=== PATIENT | male | born 1985 | race Caucasian/White ===

== ENCOUNTER → 2021-05-03 10:19 | Outpatient (BNVA) | payer OTHER, SELFPAY | PROVIDERS: PCP Nurse Practitioner Family; Visit Provider Psychiatry & Neurology Neurology ==

== ENCOUNTER 2021-05-20 18:41 | Outpatient (REF) | payer OTHER, SELFPAY ==
--- NOTE | ~2021-05-20 | MR_ITS ---
EXAMINATION: MR LUMBAR SPINE WITHOUT CONTRAST CLINICAL INFORMATION: Spondylosis without myelopathy or radiculopathy. COMPARISON: CT abdomen and pelvis 01/26/2019. TECHNIQUE: MRI of the lumbar spine was obtained using routine sequences without contrast. FINDINGS: Alignment is normal. Vertebral heights are preserved. No acute bone marrow signal changes. There is slight loss of intervertebral disc height and T2 signal intensity at multiple levels related to disc degeneration. The tip of the conus medullaris is located at T12-L1. No mass effect on the conus. Visualized distal cord signal intensity is normal. At L1-L2 the annular contour is normal. No canal or neuroforaminal compromise. At L2-L3 there is a slightly bulging disc. No canal stenosis. No mass effect on the traversing or foraminal nerve roots. At L3-L4 there is a diffusely bulging disc. Mild canal stenosis. No mass effect on the traversing or foraminal nerve roots. At L4-L5 there is a shallow left foraminal to far lateral protrusion superimposed upon a bulging disc. No canal stenosis. Asymmetric narrowing of the left subarticular zone causing abutment and possible compression of left traversing L5 nerve roots. Mild mass effect on both L4 foraminal nerve roots. At L5-S1 there is a diffusely bulging disc. Bilateral facet degenerative change. No canal stenosis. Mild mass effect on both L5 foraminal nerve roots. Limited visualization of the retroperitoneal anatomy reveals no abnormal finding. Psoas and paraspinal muscle groups are symmetric. MR/MR lumbar spine wo con IMPRESSION: There is disc degeneration at multiple levels within the lumbar spine. Mild canal stenosis at L3-L4. Otherwise no canal compromise. At L4-L5 there is a small left foraminal to far lateral protrusion superimposed upon a bulging disc. Mild mass effect on both L4 foraminal nerve roots at L4-L5. There is also asymmetric narrowing of the left subarticular zone at this level causing abutment and possible compression of the left traversing L5 nerve roots. Mild mass effect on both L5 foraminal nerve roots related to degenerative changes at L5-S1.
== END 2021-05-20 18:42 | disposition home or self-care (01) ==
LOC: HO.MRI 18:41
PROVIDERS: Visit Provider Psychiatry & Neurology Neurology
DX: M47.816 Spondylosis without myelopathy or radiculopathy, lumbar region (principal); R26.89 Other abnormalities of gait and mobility
CPT/HCPCS: 72148

== ENCOUNTER → 2021-07-12 12:51 | Outpatient (BNVA) | payer OTHER, SELFPAY | PROVIDERS: PCP Nurse Practitioner Family; Visit Provider Nurse Practitioner Family | DX: Z13.89 Encounter for screening for other disorder (principal) ==

== ENCOUNTER 2021-08-01 08:29 | Emergency (ER) | payer OTHER, SELFPAY ==
--- NOTE | ~2021-08-01 | XR_ITS ---
EXAMINATION: XR CHEST CLINICAL INFORMATION: Chest pain COMPARISON: None TECHNIQUE: 2 views of the chest were obtained. FINDINGS: Slight elevation the right hemidiaphragm, nonspecific. No pneumothorax. Trachea is midline. Cardiomediastinal silhouette is not enlarged. No large pleural effusion. Osseous structures are intact. Soft tissues are unremarkable. XR/XR chest 2V IMPRESSION: No acute cardiopulmonary process.
[2021-08-01 08:40] VITALS: BP 132/88; PULSE 80; RESP 18; TEMP 37; O2SAT 99; BMI 29.8
--- NOTE | 2021-08-01 08:51 | ECG_ITS ---
Test Reason : chest pain Blood Pressure : / mmHG Vent. Rate : 094 BPM Atrial Rate : 094 BPM P-R Int : 130 ms QRS Dur : 082 ms QT Int : 338 ms P-R-T Axes : 063 053 048 degrees QTc Int : 422 ms Normal sinus rhythm Normal ECG No previous ECGs available Referred By: Louise Díaz Electronically Signed By:SPENSER SHEA
[2021-08-01 09:56] LABS: MANUAL DIFF FLAG NO
[2021-08-01 10:08] LABS: Basophils Percent Auto 0.3 % (0-2); Eosinophils Absolute Auto 0.1 X10*3/uL (0.0-0.4); Eosinophils Percent Auto 0.6 % (0-4); Hematocrit 40.9 % (42.0-52.0); Imm Gran Abs Auto 0.05 X10*3/uL (0.00-0.03); Imm Gran Pct Auto 0.5 % (0.0-0.4); Lymphocytes Percent Auto 20.7 % (20-40); Mean Corpuscular HGB Conc 34.2 g/dl (31.0-36.0); Mean Corpuscular Volume 81.8 fL (80.0-98.0); Mean Platelet Volume 9.5 fL (9.4-12.4); Monocytes Absolute Auto 0.7 X10*3/uL (0.1-1.2); Monocytes Percent Auto 7.6 % (2-11); Neutrophils Absolute Auto 6.6 x10*3/uL (2.0-8.3); Neutrophils Percent Auto 70.3 % (45-73); Platelet Count 271 X10*3/uL (160-400); Red Cell Distribution Width 12.6 % (11.0-16.0); White Blood Count 9.5 X10*3/uL (4.8-10.8)
[2021-08-01 10:17] LABS: Alanine Aminotransferase 38 U/L (0-40); Albumin Level 4.8 g/dL (3.5-5.0); Alkaline Phosphatase 76 U/L (39-117); Anion Gap 13 (12-20); Aspartate Amino Transferase 26 U/L (5-37); Bilirubin Total 0.4 mg/dL (0.0-1.0); Blood Urea Nitrogen 17 mg/dL (9-16); Calcium 10.1 mg/dL (8.4-10.2); Carbon Dioxide 26 mmol/L (22-29); Chloride 105 mmol/L (96-108); Creatinine Clr Calc Pharmacy 115.1; Estimated Glomerular Filt Rate > 60; Glucose Random 97 mg/dL (60-115); Potassium 4.5 mmol/L (3.3-5.1); Sodium 139 mmol/L (135-145); Total Protein 7.6 g/dL (6.5-8.0)
[2021-08-01 10:20] LABS: Troponin-I High Sensitivity < 3.5 ng/L (<3.5-35.0)
[2021-08-01 10:26] LABS: COVID-19 Test Negative (Negative); IDNOW Serial# 16C4AD1C; Influenza A Negative (Negative); Influenza B2 Negative (Negative)
--- NOTE | 2021-08-01 12:36 | ED.GENADULT ---
HPI - General Adult General Chief complaint: General Medical Stated complaint: chest pain headache Time Seen by Provider: 08/01/21 08:51 Source: patient Mode of arrival: ambulatory Limitations: no limitations History of Present Illness HPI narrative: Patient is a 35 year old male presenting to the emergency department today feeling generally unwell. Patient states that for the last few weeks, he has felt generally unwell. Patient denies any dizziness, lightheadedness, abdominal pain, nausea, vomiting, fever, blurry vision, double vision, loss of vision, chest pain, difficulty breathing, shortness of breath, back pain, night sweats, pain with urination, increased urinary frequency, increased urinary urgency, blood in his urine or stool, syncope or a near syncopal episode, recent trauma or falls, bowel incontinence, bladder incontinence, bowel retention, bladder retention, or any other complaints at this time. Onset (ago): week(s) Relieving factors: none Exacerbating factors: none Associated symptoms: cough and fever/chills Treatments prior to arrival: none Related Data Home Medications Medication Instructions Recorded Confirmed acetaminophen 500 mg tablet 500 mg PO Q6H PRN 05/02/21 07/12/21 (Tylenol Extra Strength) escitalopram oxalate 5 mg tablet 5 mg PO DAILY 05/03/21 07/12/21 nortriptyline 25 mg capsule 25 mg PO BEDTIME 05/03/21 07/12/21 pregabalin 150 mg capsule 225 mg PO BID cap 05/03/21 07/12/21 Allergies Allergy/AdvReac Type Severity Reaction Status Date / Time No Known Allergies Allergy Verified 05/03/21 10:35 Review of Systems Constitutional: Constitutional: Reports no additional constitutional complaints, Reports chills, Denies fever(s) and Denies night sweats Eyes: Eyes: Reports no additional eye complaints, Denies blurry vision, Denies change in vision, Denies diplopia, Denies eye discharge, Denies loss of vision and Denies eye pain ENT: Denies dizziness and Reports sore throat Cardiovascular: Cardiovascular: Reports no additional cardiovascular complaints, Denies chest pain, Denies lightheadedness, Denies Loss of Consciousness and Denies dyspnea Respiratory: Respiratory: Reports no additional respiratory complaints, Reports cough and Denies dyspnea Gastrointestinal: Gastrointestinal: Reports no additional gastrointestinal complaints, Denies abdominal pain, Denies melena, Denies hematochezia, Denies change in bowel habits and Denies change in stool character Genitourinary: Genitourinary: Reports no additional male genitourinary complaints, Denies hematuria, Denies oliguria, Denies difficulty urinating, Denies dysuria, Denies urinary frequency, Denies urinary hesitancy, Denies urinary incontinence and Denies urinary urgency Musculoskeletal: Musculoskeletal: Reports no additional musculoskeletal complaints, Denies numbness and Denies tingling Neurologic: Denies dizziness, Denies loss of vision, Denies numbness and Denies tingling Psychiatric: Psychiatric: Reports no additional psychiatric complaints Endocrine: Endocrine: Reports no additional endocrine complaints Hematologic/Lymphatic: Hematologic/Lymphatic: Reports no additional hematologic/lymphatic complaints Allergic/Immunologic: Allergic/Immunologic: Reports no additional allergic/immunologic complaints [facility] Past Medical History Attestation statement: The following information was validated with the patient. Source: old records reviewed Medical History Cervical spondylosis Headache Lumbar spondylosis Surgical History H/O knee surgery S/P cervical disc replacement Family History Family History Father Diabetes mellitus Mother Diabetes mellitus Social History Social History Alcohol intake: current Alcohol intake frequency: holidays/special occasions only Patient Tobacco Use Status: Never used Tobacco Advance Directives: Yes Advance Directives Information Provided: Yes Advance Directives on File: No Physical Exam ED Vital Signs: Vital Signs - 24 hr 08/01/21 08:40 Temperature 98.6 F Pulse Rate 80 Respiratory Rate 18 Blood Pressure 132/88 Pulse Oximetry 99 BMI result Body Mass Index 29.8 Const General: cooperative, no acute distress, alert and awake Nutritional Appearance: well nourished Orientation/consciousness: patient oriented x3 Limitations: no limitations HENMT Head: Yes normal to inspection and Yes atraumatic Ears: hearing grossly normal bilaterally and external ears normal General nose exam: Normal external nose present, no nasal discharge noted and no epistaxis Face and sinus: Yes normal facial exam, No abrasion and No laceration Mouth: Normal oral and palatal mucosa present, no drooling and no muffled voice Eyes General: appearance normal, both eyes and all related structures Periorbital: periorbital findings normal Eyelids: Yes eyelids normal Conjunctivae: conjunctivae normal Pupils: Equal, round and reactive pupils present EOM: EOMs intact bilaterally Neck Neck: Yes normal visual inspection, Yes full ROM and Yes no lymphadenopathy Chest Chest palpation & inspection: normal inspection of the chest Resp Effort & Inspection: normal respiratory effort and able to speak in complete sentences Auscultation: clear to auscultation bilaterally Cardio Rate: regular rate Rhythm: regular rhythm GI Inspection: Yes normal to inspection Neuro General: patient oriented x3 and moves all extremities Cranial nerves: Yes Equal, round and reactive pupils present Cognition (Neuro): normal cognition Motor exam (neuro): 5/5 motor strength present throughout Sensory Exam: Normal double simultaneous stimulation for sensation Coordination: [id number] test normal Extrem General: Yes normal to inspection, Yes full ROM and Yes capillary refill normal Psych Appearance: grossly normal Mental Status: mental status grossly normal Affect: normal affect Attitude: cooperative Thought process: Normal thought process present Thought content: Normal thought content present Insight: Good insight present (Psych) Medical Decision Making MDM Narrative Medical decision making narrative: Patient is a 35 year old male presenting to the emergency department today feeling generally unwell. Patient's physical exam was unremarkable. Patient's blood work was unremarkable. Patient's EKG was unremarkable. Patient's chest x-ray showed no acute process. Patient's rapid COVID-19 and Influenza test was negative. I explained my physical exam findings as well as all test results to the patient. I answered all questions asked by the patient. I stressed the importance of the patient taking his medication as prescribed. I stressed the importance of the patient following up with his primary care provider. I stressed the importance of the patient returning to the emergency department immediately if his symptoms were to worsen or if he were to develop any dizziness, shortness of breath, difficulty breathing, chest pain, blurry vision, loss of vision, nausea, vomiting, abdominal pain, fever, chills, back pain, or any other complaints. Patient erbalized agreement and understanding with this treatment plan and discharge. Differential Diagnosis Differential Diagnosis: viral illness, COVID-19, influenza Medical Records Medical records reviewed: Yes I reviewed the patient's medical records. Lab Data Lab results reviewed: Yes I reviewed the patient's lab results. Result diagrams: 08/01/21 09:49 08/01/21 09:49 Labs: Lab Results 08/01/21 08/01/21 08/01/21 Range/Units 09:49 09:49 09:49 WBC 9.5 (4.8-10.8) X10*3/uL RBC 5.00 (4.60-5.80) X10*6/uL Hgb 14.0 (14.0-18.0) g/dl Hct 40.9 L (42.0-52.0) % MCV 81.8 (80.0-98.0) fL MCH 28.0 (27.0-33.0) pg MCHC 34.2 (31.0-36.0) g/dl RDW 12.6 (11.0-16.0) % Plt Count 271 (160-400) X10*3/uL MPV 9.5 (9.4-12.4) fL Immature Gran % (Auto) 0.5 H (0.0-0.4) % Neut % (Auto) 70.3 (45-73) % Lymph % (Auto) 20.7 (20-40) % [place] % (Auto) 7.6 (2-11) % Eos % (Auto) 0.6 (0-4) % Baso % (Auto) 0.3 (0-2) % Lymph # (Auto) 2.0 (1.2-4.9) X10*3/uL [place] # (Auto) 0.7 (0.1-1.2) X10*3/uL Eos # (Auto) 0.1 (0.0-0.4) X10*3/uL Baso # (Auto) 0.0 (0.0-0.2) X10*3/uL Abs Immat Gran (auto) 0.05 H (0.00-0.03) X10*3/uL Absolute Neuts (auto) 6.6 (2.0-8.3) x10*3/uL Absolute Nucleated RBC 0.000 (0.0-0.012) X10*3/uL Nucleated RBC % (auto) 0.0 (0.0-0.2) /100WBC Sodium 139 (135-145) mmol/L Potassium 4.5 (3.3-5.1) mmol/L Chloride 105 (96-108) mmol/L Carbon Dioxide 26 (22-29) mmol/L Anion Gap 13 (12-20) BUN 17 H (9-16) mg/dL Creatinine 0.91 (0.5-1.4) mg/dL Estim Creat Clear Calc 115.1 Estimated GFR > 60 Random Glucose 97 (60-115) mg/dL Calcium 10.1 (8.4-10.2) mg/dL Magnesium 2.0 (1.6-2.6) mg/dL Total Bilirubin 0.4 (0.0-1.0) mg/dL AST 26 (5-37) U/L ALT 38 (0-40) U/L Alkaline Phosphatase 76 (39-117) U/L Troponin I High Sens < 3.5 (<3.5-35.0) ng/L Total Protein 7.6 (6.5-8.0) g/dL Albumin 4.8 (3.5-5.0) g/dL COVID-19 (CELESTE) (Negative) COVID-19 Clin Com Influenza Type A (BERNIE) (Negative) Influenza Type B (BERNIE) (Negative) Influenza A & B Note 08/01/21 08/01/21 Range/Units 09:49 09:49 WBC (4.8-10.8) X10*3/uL RBC (4.60-5.80) X10*6/uL Hgb (14.0-18.0) g/dl Hct (42.0-52.0) % MCV (80.0-98.0) fL MCH (27.0-33.0) pg MCHC (31.0-36.0) g/dl RDW (11.0-16.0) % Plt Count (160-400) X10*3/uL MPV (9.4-12.4) fL Immature Gran % (Auto) (0.0-0.4) % Neut % (Auto) (45-73) % Lymph % (Auto) (20-40) % [place] % (Auto) (2-11) % Eos % (Auto) (0-4) % Baso % (Auto) (0-2) % Lymph # (Auto) (1.2-4.9) X10*3/uL [place] # (Auto) (0.1-1.2) X10*3/uL Eos # (Auto) (0.0-0.4) X10*3/uL Baso # (Auto) (0.0-0.2) X10*3/uL Abs Immat Gran (auto) (0.00-0.03) X10*3/uL Absolute Neuts (auto) (2.0-8.3) x10*3/uL Absolute Nucleated RBC (0.0-0.012) X10*3/uL Nucleated RBC % (auto) (0.0-0.2) /100WBC Sodium (135-145) mmol/L Potassium (3.3-5.1) mmol/L Chloride (96-108) mmol/L Carbon Dioxide (22-29) mmol/L Anion Gap (12-20) BUN (9-16) mg/dL Creatinine (0.5-1.4) mg/dL Estim Creat Clear Calc Estimated GFR Random Glucose (60-115) mg/dL Calcium (8.4-10.2) mg/dL Magnesium (1.6-2.6) mg/dL Total Bilirubin (0.0-1.0) mg/dL AST (5-37) U/L ALT (0-40) U/L Alkaline Phosphatase (39-117) U/L Troponin I High Sens (<3.5-35.0) ng/L Total Protein (6.5-8.0) g/dL Albumin (3.5-5.0) g/dL COVID-19 (CELESTE) Negative (Negative) COVID-19 Clin Com See Note Influenza Type A (BERNIE) Negative (Negative) Influenza Type B (BERNIE) Negative (Negative) Influenza A & B Note See Note Imaging Data Chest x-ray: Attestation: I personally reviewed and interpreted this imaging study as follows: My impression: No acute process. Radiologist's impression: EXAMINATION: XR CHEST CLINICAL INFORMATION: Chest pain COMPARISON: None TECHNIQUE: 2 views of the chest were obtained. FINDINGS: Slight elevation the right hemidiaphragm, nonspecific. No pneumothorax. Trachea is midline. Cardiomediastinal silhouette is not enlarged. No large pleural effusion. Osseous structures are intact. Soft tissues are unremarkable. XR/XR chest 2V IMPRESSION: No acute cardiopulmonary process. Dictated By: Dominguez Moreno MD Signed By: Electronically signed by Dominguez Moreno MD 08/01/21 1002 ECG Data Attestation: I personally reviewed and interpreted this ECG as follows: Prior ECG tracings: not available for review Interpretation: Vent. Rate: 094 BPM ? ? Atrial Rate: 094 BPM P-R Int: 130 ms? QRS Dur: 082 ms QT Int: 338 ms ? ? ? P-R-T Axes: 063 053 048 degrees QTc Int: 422 ms ? Normal sinus rhythm Normal ECG No previous ECGs available DD/ 6 Discharge Plan Discharge Clinical Impression: Viral illness Patient Disposition: Home, Self-Care Instructions: Viral Syndrome (ED) Additional Instructions: Follow up with your primary care provider. Return to the emergency department immediately if your symptoms worsen or if you develop any dizziness, shortness of breath, difficulty breathing, chest pain, blurry vision, loss of vision, nausea, vomiting, abdominal pain, fever, chills, back pain, or any other complaints. Prescriptions: No Action acetaminophen [Tylenol Extra Strength] 500 mg tablet 500 mg PO Q6H PRN0RF pregabalin 150 mg capsule 225 mg PO BID 0RF nortriptyline 25 mg capsule 25 mg PO BEDTIME 0RF escitalopram oxalate 5 mg tablet 5 mg PO DAILY 0RF Referrals: Gregor Velazquez MD [Primary Care Provider] - (Follow up with your PCP. ) Interventions: ED Discharge Assessment Last Done: 08/01/21 13:08 Discharge Date/Time: 08/01/21 13:09 Print Language: Kiswahili
== END 2021-08-01 13:09 | disposition home or self-care (01) ==
PROVIDERS: Physician Assistant Medical; Emergency Provider Emergency Medicine; PCP Pediatrics
DX: B34.9 Viral infection, unspecified (principal); Z20.822 Contact with and (suspected) exposure to COVID-19
CPT/HCPCS: 71046; 80053; 83735; 84484; 85025; 87502; 87635; 93005; 99283

== ENCOUNTER → 2021-08-19 08:59 | Outpatient (BNVA) | payer OTHER, SELFPAY | PROVIDERS: PCP Nurse Practitioner Family; Visit Provider Nurse Practitioner Family | DX: M62.830 Muscle spasm of back (principal) ==

== ENCOUNTER 2022-01-28 06:08 | Outpatient (REF) | payer OTHER, SELFPAY ==
--- NOTE | ~2022-01-28 | FL_ITS ---
EXAMINATION: XR FLUOROSCOPY WITH IMAGES CLINICAL INFORMATION: Disc degeneration in the lumbar region. COMPARISON: MRI of the lumbar spine of 05/20/2021. TECHNIQUE: Fluoroscopy performed by Cherelle Sidhu. Fluoroscopy time: 0.5 minutes. Cumulative Dose: 17.1 mGy. DAP: 4.67 Gy-cm2. Images: 2. FINDINGS: Needle and contrast seen in place about the right L5 neuroforamina with extension of contrast into the epidural space. On a 2nd image which does not show right and left positioning a needle is seen at L5 neuroforamina with epidural extension. FL/FL guidance in treatment room IMPRESSION: Intraoperative fluoroscopy for orthopedic procedure for pain management.
== END 2022-01-28 06:09 | disposition home or self-care (01) ==
LOC: CF 06:08
PROVIDERS: Visit Provider Anesthesiology
DX: M51.36 Other intervertebral disc degeneration, lumbar region (principal); M96.1 Postlaminectomy syndrome, not elsewhere classified
CPT/HCPCS: 62323; J1100; J3300

== ENCOUNTER 2022-02-05 10:29 | Outpatient (REF) | payer OTHER, SELFPAY ==
[2022-02-05 13:50] LABS: Baso%MD 0.4 %; Hematocrit 41.2 % (42.0-52.0); Hemoglobin 14.2 g/dl (14.0-18.0); IG%MD 1.3 %; Lymph%MD 19.7 %; Mean Corpuscular HGB Conc 34.5 g/dl (31.0-36.0); Mean Corpuscular Hemoglobin 28.6 pg (27.0-33.0); Mean Corpuscular Volume 83.1 fL (80.0-98.0); Mean Platelet Volume 9.9 fL (9.4-12.4); Mono%MD 9.6 %; Platelet Count 262 X10*3/uL (160-400); Red Blood Count 4.96 X10*6/uL (4.60-5.80); Red Cell Distribution Width 12.6 % (11.0-16.0); White Blood Count 10.4 X10*3/uL (4.8-10.8)
[2022-02-05 14:29] LABS: Erythrocyte Sedimentation Rate 5 MM/HR (0-15)
[2022-02-05 14:44] LABS: Band Neutrophils Percent 1 % (3-5); Basophils Abs Manual 0.1 X10*3/uL (0.0-0.2); Basophils Percent Manual 1 % (0-2); Eosinophils Absolute Manual 0.1 X10*3/uL (0.0-0.4); Eosinophils Percent Manual 1 % (0-4); Lymphocytes Absolute Manual 2.1 X10*3/uL (1.2-4.9); Lymphocytes Percent Manual 20 % (20-40); Monocytes Absolute Manual 0.7 X10*3/uL (0.1-1.2); Monocytes Percent Manual 7 % (2-11); Neutrophils Absolute Manual 7.4 X10*3/uL (2.0-8.3); Neutrophils Percent Manual 70 % (45-73)
[2022-02-05 14:46] LABS: Platelet Estimate NORMAL (NORMAL); Platelet Morphology Comment NORMAL; RBC Morphology NORMAL
[2022-02-07 14:32] LABS: CRP High Sensitivity 3.2 mg/L
== END 2022-02-05 10:30 | disposition home or self-care (01) ==
LOC: HO.10HDL 10:29
PROVIDERS: Visit Provider Anesthesiology
DX: M51.36 Other intervertebral disc degeneration, lumbar region (principal)
CPT/HCPCS: 36415; 85007; 85027; 85652; 86141

== ENCOUNTER 2022-02-14 10:00 | Outpatient (REF) | payer OTHER, SELFPAY ==
[2022-02-14 10:38] LABS: Baso%MD 0.4 %; Eos%MD 0.6 %; Hemoglobin 14.1 g/dl (14.0-18.0); IG%MD 0.4 %; Lymph%MD 20.3 %; Mean Corpuscular HGB Conc 34.4 g/dl (31.0-36.0); Mean Corpuscular Hemoglobin 28.8 pg (27.0-33.0); Mean Corpuscular Volume 83.7 fL (80.0-98.0); Mean Platelet Volume 9.3 fL (9.4-12.4); Mono%MD 9.8 %; Neut%MD 68.5 %; Platelet Count 256 X10*3/uL (160-400); Red Cell Distribution Width 12.7 % (11.0-16.0)
[2022-02-14 11:22] LABS: Band Neutrophils Percent 2 % (3-5); Eosinophils Absolute Manual 0.1 X10*3/uL (0.0-0.4); Eosinophils Percent Manual 1 % (0-4); Lymphocytes Absolute Manual 2.2 X10*3/uL (1.2-4.9); Lymphocytes Percent Manual 27 % (20-40); Monocytes Absolute Manual 1.1 X10*3/uL (0.1-1.2); Monocytes Percent Manual 14 % (2-11); Neutrophils Absolute Manual 4.6 X10*3/uL (2.0-8.3); Neutrophils Percent Manual 56 % (45-73)
[2022-02-14 11:24] LABS: Platelet Estimate NORMAL (NORMAL); Platelet Morphology Comment NORMAL; RBC Morphology NORMAL
[2022-02-14 11:32] LABS: Erythrocyte Sedimentation Rate 5 MM/HR (0-15)
[2022-02-17 22:26] LABS: CRP High Sensitivity 1.8 mg/L
== END 2022-02-14 10:01 | disposition home or self-care (01) ==
LOC: HO.10HDL 10:00
PROVIDERS: Visit Provider Nurse Practitioner Family
DX: M51.36 Other intervertebral disc degeneration, lumbar region (principal)
CPT/HCPCS: 36415; 85007; 85027; 85652; 86141

== ENCOUNTER → 2022-04-17 14:01 | Outpatient (BNVA) | payer OTHER, SELFPAY | PROVIDERS: PCP Nurse Practitioner Family; Visit Provider Nurse Practitioner Family | DX: M51.36 Other intervertebral disc degeneration, lumbar region (principal) ==

== ENCOUNTER 2022-06-27 12:51 | Outpatient (REF) | payer OTHER, SELFPAY ==
--- NOTE | ~2022-06-27 | XR_ITS ---
EXAMINATION: XR CERVICAL SPINE CLINICAL INFORMATION: Cervical radiculopathy. COMPARISON: Portions of the MRI cervical spine dated 08/03/2020. TECHNIQUE: Frontal, odontoid, bilateral oblique, lateral and swimmer's views of the cervical spine are submitted. FINDINGS: The vertebral alignment is normal. No intrinsic bony abnormality. There are intact C4-C5 and C5-C6 disc prostheses. There is mild bilateral neural foraminal narrowing at C5-C6. The remaining disc heights and neural foramina are well maintained. The posterior elements are normal. No fracture or subluxation. The surrounding prevertebral soft tissues are unremarkable. XR/XR cervical spine min 6V IMPRESSION: 1. There are intact C4-C5 and C5-C6 disc prostheses. 2. There is mild bilateral foraminal narrowing at C5-C6.
--- NOTE | ~2022-06-27 | XR_ITS ---
EXAMINATION: XR SHOULDER, RIGHT CLINICAL INFORMATION: Pain. COMPARISON: None available. TECHNIQUE: AP external rotation, Grashey, scapular Y, and axillary views of the right shoulder. FINDINGS: The bones and soft tissues are normal. No fracture. Glenohumeral and acromioclavicular alignment is anatomic with normal joint space. No abnormal soft tissue calcifications. XR/XR shoulder RT min 2V IMPRESSION: Normal right shoulder.
== END 2022-06-27 12:52 | disposition home or self-care (01) ==
LOC: HO.XRAY 12:51
PROVIDERS: PCP Nurse Practitioner Family; Visit Provider Nurse Practitioner Family
DX: M25.511 Pain in right shoulder (principal); M47.22 Other spondylosis with radiculopathy, cervical region; G43.909 Migraine, unspecified, not intractable, without status migrainosus; M96.1 Postlaminectomy syndrome, not elsewhere classified; Z79.899 Other long term (current) drug therapy
CPT/HCPCS: 72052; 73030

== ENCOUNTER → 2022-07-08 15:53 | Outpatient (BNVA) | payer OTHER, SELFPAY | PROVIDERS: PCP Nurse Practitioner Family; Visit Provider Nurse Practitioner Family | DX: Z13.89 Encounter for screening for other disorder (principal) ==

== ENCOUNTER 2022-09-17 06:03 | Outpatient (REF) | payer OTHER, SELFPAY ==
--- NOTE | ~2022-09-17 | FL_ITS ---
EXAMINATION: XR FLUOROSCOPY WITH IMAGES CLINICAL INFORMATION: Postlaminectomy syndrome, not elsewhere classified. Right cervical injection. COMPARISON: None available. TECHNIQUE: Fluoroscopy Supervised By: Dr. Gunter. Fluoroscopy Time: 0.6 minutes. Cumulative Dose: 6.96 mGy. DAP: 0.466 Gycm2. Images: 3. FINDINGS: Images demonstrate needle placement and contrast injection over the right posterior lateral lower cervical vertebral bodies FL/FL guidance in treatment room IMPRESSION: Fluoroscopy guidance for pain management
== END 2022-09-17 06:04 | disposition home or self-care (01) ==
LOC: CF 06:03
PROVIDERS: Visit Provider Internal Medicine
DX: M96.1 Postlaminectomy syndrome, not elsewhere classified (principal); M54.12 Radiculopathy, cervical region
CPT/HCPCS: 62321; J1040

== ENCOUNTER 2022-10-16 09:58 | Outpatient (AMB) | payer OTHER, SELFPAY ==
--- NOTE | 2022-10-16 10:00 | A.OFFVIS_ITS ---
Intake Vital Signs 10/16/22 10:03 Height 5 ft 6 in Weight 187 lb 2 oz BMI 30.2 BP 134/77 Position Sitting Pulse 80 Pulse Source Pulse Oximeter Pulse Oximetry (%) 98 Oxygen Delivery Method Room Air Intake Visit Reasons: s/p Right C5-C6 interlaminar PHU Intake Note: Pain today 10/13 Manager Of Environmental Services Required: No Accompanied by: Self / Same As Patient Allergies No Known Allergies Allergy (Verified 10/16/22 10:03) HPI HPI Comments History of Present Illness Details Patient presents today to assess response to Interlaminar epidural steroid injection, C7/T1, Right parasaggital on 09/17/[address] Gunter. Patient reports 60% ongoing pain relief since procedure with partially improved cervical range of motion, functioning, better sleep and better social in teractions. Patient reports he is continuing with home exercise program for his neck pain but notices neck stiffness with left lateral rotation. He also reports chronic low back pain and is interested to undergo diagnostic bilateral medial branch blocks for potential Sprint PNS trial. We also briefly returned to SCS trial topic. His behavioral evaluation will be expiring next week. Patient is not interested in neuromodulation with SCS trial at this time and will pursue less invasive interventional treatments at this time. Denies fever, malaise, dizziness, shortness of breaths, weakness, abdominal or groin pain, bowel or bladder incontinence or saddle anesthesia. Past Procedures: 09/17/22: Interlaminar C7-T1 parasaggital PHU injection-ongoing 60% pain relief 01/28/22: Left L4-L5 and Right L5-S1 transforaminal PHU-0% pain relief PRIOR: Patient presents today via telehealth encounter to discuss recent cervical spine and right shoulder imaging results. Patient continues to endorse right shoulder pain and right sided neck pain with increased pain, stiffness, limited daily activities, disruppted sleep and difficulty with spending time with his family, especially with his children. Patient reports he cannot shrimp picker his 6 months old baby or play with his toddler. Repors throbbing pain with weakness in his right hand and significant muscle spasms and tenderness between his neck and shoulder area. Denies numbness, tingling, gait imbalance, dizziness, bladder or bowel incontinence or saddle anesthesia. He underwent C4-C5, C5-C6 anterior approach cervical surgery in [address] Alva and has followed up with him about 2 years ago for his lower back pain. Patient requests repeat cervical spine MRI due to worsening of his neck symptoms. Right shoulder xray was normal. Cervical spine xray showed intact C4-C5 and C5-C6 disc prostheses and mild bilateral foraminal narrowing at C5-C6. PRIOR: Patient presents today for follow up for ongoing right shoulder pain and right sided neck pain with limited range of motion. He completed 8 sessions of chiropractic with minimal improvement. Patient also reports tension and migraine headaches with photosensitivity, eye pressure, muscle spasms and stiffness. Denies any recent trauma, injury, or falls. His neck pain has been chronic and worsening with components of cervical post-laminectomy pain syndrome. He c ontinues to take meloxicam, pregabalin, Tylenol, heat therapy, and methocarbamol. Patient has passed behavioral evaluation for potential cervical SCS trial. We will obtain right shoulder and neck plain films and proceed with cervical SCS trial if no acute findings. Denies any recent cough, cold, inf ection, fever or other significant changes in medical history since last office visit. PRIOR: Patient presents today with right sided neck pain with radiation to his right top of the shoulder into his right lower arm and extending into his right lower arm and fingers with numbness and fingers. He underwent C4-C5, C5-C6 anterior approach cervical surgery in [address] Alva. Patient had last follow up with Dr. Alva after neck surgery for back pain and was told no surgical indications for back surgery. Patient states his neck pain started about 2 weeks ago. He has been out of work for holiday times and denies any inciting events, recent trauma, injury or falls. Reports right sided neck tightness. Painful neck turns during driving. Patient had similar neck pain episodes as well spasmodic torticollis in 2019 and 2020 and was seen by his neurologist Dr. Fernandes with cervical MRI follow ups. Last cervical MRI on 08/03/2020 showed stable exam compared to imaging on 11/28/2019. Post-operative findings redemonstrated at the C4-C5 and C5-C6 levels. No significant spinal canal stenosis. Unchanged neural foraminal stenosis which appears moderate to severe on the right and moderate on the left at C3-C4 and is moderate to severe bilaterally at C5-C6. Patient has full range of motion of right shoulder and significant right sided upper and lower trapezius muscle tightness and neck stiffness on the right. Patient denies any fever, headache, chills, visual disturbances, dizziness, gait instability or weakness, bowel or bladder incontinence or saddle anesthesia. Patient reports his back pain symptoms have been minimal at this time. He rates his right sided neck pain at 9/10 which increases with extension, flexion and right lateral movements. PRIOR: Patient presents today to assess response to Left L4-L5 and Right L5-S1 transforaminal PHU 01/28/[address] Freire. Patient had telephone follow up on 01/31/22 s/p left L4-5 and right L5-S1 TFESI for concerns of discitis per Dr. Freire. His initial WBC count was slightly elevated but still within normal limits and ESR was normal on 02/05/22. The repeat CBC with diff and ESR were normal on 02/14/22. Patient was prescribed co urse of Clindamycin for prophylaxis and prevention of discitis. We attempted to preauthorize lumbar spine MRI s/p injection but this was denied. At this time, no further suspension for discitis. Patient reports he had temporary relief of symptoms on the right side but continues to reports radiation of his back pain into his LLE with associated numbness and tingling. He reports alternating symptoms of muscle spasms and heaviness in his lower back after his work hours. He has stopped tizanidine due to ineffectiveness and drowsiness. Patient has been taking Ibuprofen 600-800 mg bid prn for severe pain with partial symptom relief. Patient is interested to trial chiropractic manipulation prior to reconsider further therapeutic injections or SCS trial. He denies any recent trauma, injury or falls. Denies fever, malaise, dizziness, shortness of breaths, weakness, abdominal or groin pain, bowel or bladder incontinence or saddle anesthesia. PRIOR: Patient presents to follow up after recently completing and passing behavioral assessment for potential lumbar SCS. Patient continues to report constant axial mid and lower back pain symptoms and intermittent discogenic symptoms with radiation of lower back pain to lower legs posteriorly up to the ankle levels with associated numbness and tingling. Pain increased with prolonged sitting, standing or walking and position changes. Patient is currently on maximum dose of pregablin 225 mg BID, nortriptyline 25 mg at bedtime, tizanidine 4 mg prn, and celecoxib 200 mg BID prn. Patient reports he has reviewed SCS trial and permanent system brochures and is interested to trial least invasive treatment options first prior to considering SCS trial. 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 Patient continues to report significant muscle tenderness and spasms in his mid and lower back regions, worse in the morning. He denies any recent trauma, injury or falls. Denies abdominal or groin pain, bowel or bladder incontinence or saddle anesthesia. I have reviewed his [facility] records. Patient had multiple injections through [facility], including bilateral L4-L5 and L5-S1 facet injections that provided him 80% pain relief for 4 weeks. Bilateral C6 TFESI injection was helpful. His lumbar spine MRI 05/2021 shows minimal discogenic and arthritic changes and he is not a surgical candidate per Dr. Alva. Patient is interested to undergo lumbar PHU injection to alleviate his back symptoms. PRIOR: Patient is a pleasant 35 year old male presents today with chronic cervical and lumbar pain and post laminectomy syndrome of the cervical region. Patient reports C4-C5, C5-C6 anterior approach cervical surgery in [address] Alva after which he started having lower back pain. Today he reports axial back pain that radiates into his lower legs posteriorly and intermittently with numbness and tingling in his toes. Pain is described as severe shooting, ?electrical pain,? throbbing, stabbing, sharp, pinching, tingling, dull, sore, hurting, ach ing, heavy, tiring, exhausting and radiating. Patient reports his symptoms have been worsening with any activity, movements, weather changes, he has been losing balance and fell last week due to sudden sharp pain episodes. He also reports numbness and tingling in his hands with shooting pain in his back. 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 Patient reports intermittent weakness of his upper and lower extremities. Patient received? multiple injections at [facility] and [facility] with short term relief. He had a temporary response to lumbar facet injection with steroids. Patient had no improvement of his pain with medial branch blocks at the lower lumbar facet levels per [facility] notes. He was also recently provided with a lumbar support brace which has worsened his symptoms so he stopped using it. He reports completing physical therapy through [facility] with minimal improvement in his symptoms. Currently he takes pregabalin, nortriptyline, and Tylenol with continued symptoms. Celecoxib has been ineffective. At his last [facility] visit, patient was told that he was not a surgical candidate given his most recent MRI results and absence of radicular symptoms at that time. Patient is interested to proceed with interventional options, including neuromodulation with SCS trial. He is hesitant to continue with anymore injections due to its ineffectivess in the past. [facility] Medical History Cervical spondylosis Headache Lumbar spondylosis Surgical History H/O knee surgery S/P cervical disc replacement Family History Father Diabetes mellitus Mother Diabetes mellitus Social History Alcohol intake: current Alcohol intake frequency: holidays/special occasions only Patient Tobacco Use Status: Never used Tobacco Review of Systems Const All systems reviewed & are unremarkable except as noted in HPI and below Physical Exam Vital Signs: Last Vital Signs Pulse 80 10/16/22 10:03 BP 134/77 10/16/22 10:03 Pulse Ox 98 10/16/22 10:03 Oxygen Delivery Method Room Air 10/16/22 10:03 BMI result Body Mass Index 30.2 General: Appears afebrile. Alert and oriented. Mood and affect appropriate. Follows and participates in conversation appropriately. Respiratory effort is unlabored. No cough. Able to transition from sit to stand unassisted. Ambulates with bilaterally normal heel strike and toe off. Neck Neck: Yes normal visual inspection, Yes full ROM, No no lymphadenopathy, Yes supple, No anterior neck swelling and Yes no JVD Back/Spine/Pelvis Back: back tenderness Cervical Spine: cervical ROM normal, pain with cervical ROM (left lateral rotations), Cervical spine scars present, No Cervical spine tenderness and No step off deformity Thoracic/Lumbar Spine: thoracic and lumbar spine normal to inspection, Lasegue's sign negative, straight leg raise negative bilaterally, pain with thoraco-lumbar ROM, paraspinal muscle tenderness, No thoracic spinal tenderness and lumbar spinal tenderness at L4 and at L5 Pelvis: no buttock tenderness and no sciatic notch tenderness Sacroiliac joints: bilaterally tender to palpation Results Reviewed Results Reviewed: XR CERVICAL SPINE 06/27/22 FINDINGS: The vertebral alignment is normal. No intrinsic bony abnormality. There are intact C4-C5 and C5-C6 disc prostheses. There is mild bilateral neural foraminal narrowing at C5-C6. The remaining disc heights and neural foramina are well maintained. The posterior elements are normal. No fracture or subluxation. The surrounding prevertebral soft tissues are unremarkable. IMPRESSION: 1. There are intact C4-C5 and C5-C6 disc prostheses. 2. There is mild bilateral foraminal narrowing at C5-C6. MR LUMBAR SPINE WITHOUT CONTRAST 05/20/22 CLINICAL INFORMATION: Spondylosis without myelopathy or radiculopathy. COMPARISON: CT abdomen and pelvis 01/26/2019. FINDINGS: Alignment is normal. Vertebral heights are preserved. No acute bone marrow signal changes. There is slight loss of intervertebral disc height and T2 signal intensity at multiple levels related to disc degeneration. The tip of the conus medullaris is located at T12-L1. No mass effect on the conus. Visualized distal cord signal intensity is normal. At L1-L2 the annular contour is normal. No canal or neuroforaminal compromise. At L2-L3 there is a slightly bulging disc. No canal stenosis. No mass effect on the traversing or foraminal nerve roots. At L3-L4 there is a diffusely bulging disc. Mild canal stenosis. No mass effect on the traversing or foraminal nerve roots. At L4-L5 there is a shallow left foraminal to far lateral protrusion superimposed upon a bulging disc. No canal stenosis. Asymmetric narrowing of the left subarticular zone causing abutment and possible compression of left traversing L5 nerve roots. Mild mass effect on both L4 foraminal nerve roots. At L5-S1 there is a diffusely bulging disc. Bilateral facet degenerative change. No canal stenosis. Mild mass effect on both L5 foraminal nerve roots. Limited visualization of the retroperitoneal anatomy reveals no abnormal finding. Psoas and paraspinal muscle groups are symmetric. IMPRESSION: There is disc degeneration at multiple levels within the lumbar spine. Mild canal stenosis at L3-L4. Otherwise no canal compromise. At L4-L5 there is a small left foraminal to far lateral protrusion superimposed upon a bulging disc. Mild mass effect on both L4 foraminal nerve roots at L4-L5. There is also asymmetric narrowing of the left subarticular zone at this level causing abutment and possible compression of the left traversing L5 nerve roots. Mild mass effect on both L5 foraminal nerve roots related to degenerative changes at L5-S1. Assessment & Plan Assessment & Plan (1) Post laminectomy syndrome: Code(s): M96.1 - Postlaminectomy syndrome, not elsewhere classified (2) Other intervertebral disc degeneration, lumbar region: Code(s): M51.36 - Other intervertebral disc degeneration, lumbar region (3) Muscle spasm of back: Code(s): M62.830 - Muscle spasm of back (4) Lumbar spondylosis: Code(s): M47.816 - Spondylosis without myelopathy or radiculopathy, lumbar region (5) Cervical spondylosis: Code(s): M47.812 - Spondylosis without myelopathy or radiculopathy, cervical region Plan Schedule for Bilateral Diagnostic L3-L4-L5 MBB with local and fluoroscopy for chronic axial low back pain. If he has significant relief from the diagnostic blocks for his axial low back pain, will consider either therapeutic injections, Sprint PNS or RFA depending on her preference. Patient has passed behavioral evaluation for potential cervical and lumbar SCS trial in October 2021 and this will be expiring next week. He is not interested in SCS trial at this time. All questions and concerns have been answered and patient agreed with the plan. Follow up after injections and sooner if needed. Justification for interventional therapy: ? Patient with average pain > 6/10 ? Patient has exhausted conservative therapy ? The risks, consequences, alternatives, and benefits of various treatment options were discussed with the patient in great detail, including conservative ma nagement, injections and procedures. Coding Level of Care Code Est Pt Level 4 (80459) Diagnoses Post laminectomy syndrome M96.1 Other intervertebral disc degeneration, lumbar region M51.36 Muscle spasm of back M62.830 Lumbar spondylosis M47.816 Cervical spondylosis M47.812
[2022-10-16 10:03] VITALS: BP 134/77; PULSE 80; O2SAT 98; BMI 30.2
== END 2022-10-16 10:15 | disposition home or self-care (01) ==
PROVIDERS: PCP Nurse Practitioner Family; Visit Provider Nurse Practitioner Family
DX: M96.1 Postlaminectomy syndrome, not elsewhere classified (principal); M51.36 Other intervertebral disc degeneration, lumbar region; M62.830 Muscle spasm of back; M47.816 Spondylosis without myelopathy or radiculopathy, lumbar region; M47.812 Spondylosis without myelopathy or radiculopathy, cervical region
CPT/HCPCS: 99214

== ENCOUNTER → 2022-10-16 09:58 | Outpatient (BNVA) | payer OTHER, SELFPAY | PROVIDERS: PCP Nurse Practitioner Family; Visit Provider Nurse Practitioner Family ==

== ENCOUNTER 2023-01-21 17:03 | Emergency (ER) | payer OTHER, SELFPAY ==
[2023-01-21 17:41] VITALS: BP 135/93; PULSE 119; RESP 18; TEMP 38.7; O2SAT 97; BMI 29.0
--- NOTE | 2023-01-21 17:41 | ED.GENADULT ---
HPI - General Adult General Chief complaint: Neuro Symptoms/Deficit Stated complaint: worsening body numbness, referred by PCP Time Seen by Provider: 01/21/23 18:06 Source: patient Mode of arrival: ambulatory History of Present Illness HPI narrative: 37-year-old male who denies any sore throat but states he has been experiencing body aches with back pain and headaches and reports a positive sick contact in that his son is currently being treated for strep pharyngitis. Related Data Home Medications Medication Instructions Recorded Confirmed acetaminophen 500 mg tablet 500 mg PO Q6H PRN 05/02/21 07/12/21 (Tylenol Extra Strength) pregabalin 225 mg capsule 225 mg PO BID 08/19/21 escitalopram oxalate 10 mg tablet 10 mg PO DAILY 06/27/22 clindamycin phosphate 1 % lotion topical 07/08/22 doxycycline monohydrate 100 mg 100 mg PO BID PRN 07/08/22 capsule Previous Rx's Medication Instructions Recorded meloxicam 15 mg tablet 15 mg PO DAILY for pain 90 days 04/17/22 #90 tabs magnesium glycinate 100 mg tablet 200 mg (2 x 100 mg) PO DAILY 06/27/22 migraine headache 30 days #60 tabs methocarbamol 750 mg tablet 750 mg PO Q8H PRN for muscle spasm 11/24/22 #90 tabs riboflavin (vitamin B2) 400 mg 400 mg PO DAILY for migraine #30 11/27/22 tablet tabs penicillin V potassium 500 mg 500 mg PO BID 10 days #20 tabs 01/21/23 tablet Allergies Allergy/AdvReac Type Severity Reaction Status Date / Time No Known Allergies Allergy Verified 10/16/22 10:03 Review of Systems Review of Systems: Pertinent positives and negatives as stated in HPI [facility] Past Medical History Source: nursing notes reviewed Medical History Lumbar spondylosis Cervical spondylosis Headache Surgical History H/O knee surgery S/P cervical disc replacement Family History Family History Father Diabetes mellitus Mother Diabetes mellitus Social History Social History Alcohol intake: current Alcohol intake frequency: holidays/special occasions only Patient Tobacco Use Status: Never used Tobacco Smoked in Last 30 Days: No Use of substances other than those prescribed or required for medical reasons: No Advance Directives: Yes Advance Directives Information Provided: No Advance Directives on File: No Physical Exam ED Vital Signs: Vital Signs - 24 hr 01/21/23 17:41 01/21/23 19:23 01/21/23 20:00 Temperature 101.7 F H 101.2 F H 99.4 F Pulse Rate 119 H 113 H 116 H Respiratory Rate 18 24 H 25 H Blood Pressure 135/93 H 130/80 119/68 Pulse Oximetry 97 97 96 Oxygen Delivery Method Room Air Room Air Room Air 01/21/23 21:15 01/21/23 21:35 Temperature 98.7 F Pulse Rate 112 H 109 H Respiratory Rate 23 H 25 H Blood Pressure 120/71 110/65 Pulse Oximetry 97 96 Oxygen Delivery Method Room Air Room Air BMI result Body Mass Index 29.0 VITAL SIGNS: Reviewed. GENERAL: Well developed, well nourished, in no acute distress. HEAD: Normocephalic/atraumatic EYES: PERRLA, EOMI EARS: Ext canals without abnormality, TMs non-bulging and non-erythematous NOSE: Nares patent bilateral OROPHARYNX: no oral lesions noted, posterior pharynx clear and erythematous with noted tonsillar enlargement/erythema/exudates, no uvular deviation or alex elevation of tonsillar pillars. NECK: Supple, + adenopathy LUNGS: Normal breath sounds. No adventitious sounds or accessory muscle use. SpO2<97> CARDIOVASCULAR: Regular rate and rhythm without noted murmurs ABDOMEN: Soft, non-tender, non-distended with bowel sounds. MUSCULOSKELETAL: No tenderness, deformities, or effusions noted on gross inspection. EXTREMITIES: No cyanosis, clubbing or edema. SKIN: Inspection of the skin reveals no rashes NEUROLOGIC: Alert and oriented x 4. Strength and sensation to light touch were grossly intact x 4. Course Course Course Narrative: RME - 37 yo male with history of cervical and lumbar radiculopathy with history of cervical spinal surgery 2018 at [facility] who presents to the ER for evaluation of 10/10 lower back pain and numbness in both of his legs that started in the middle of the night. Difficulty walking with pain. Also reports new and worsening numbness and tingling in the bilateral arms and hands. Kids home w/ strep throat. Fever 101.7 in triage w/ HR 119. Plan: lab workup, strep swab, determine imaging needs by Main ER provider Medications Administered Discontinued Medications Generic Name Dose Route Start Last Admin Trade Name Dylan PRN Reason Stop Dose Admin Acetaminophen 975 mg 01/21/23 18:33 01/21/23 19:17 Acetaminophen 325 Mg Tablet PO 01/21/23 18:34 975 mg ONCE ONE Administration Piperacillin Sod/Tazobactam 50 mls @ 100 mls/hr 01/21/23 18:24 01/21/23 20:17 Sod 3.375 gm/ Sodium Chloride IV 01/21/23 18:53 Infused ONCE ONE Infusion Sodium Chloride 1,000 mls @ 999 mls/hr 01/21/23 18:45 01/21/23 20:30 Ns IV 01/21/23 19:45 Infused .Q1H1M ZAIN Infusion Sodium Chloride 1,000 mls @ 999 mls/hr 01/21/23 20:30 01/21/23 21:15 Ns IV 01/21/23 21:30 Infused .Q1H1M ZAIN Infusion Ketorolac Tromethamine 15 mg 01/21/23 18:33 01/21/23 19:16 Ketorolac Tromethamine 30 Mg/Ml Vial IVPUSH 01/21/23 18:34 15 mg ONCE ONE Administration Medical Decision Making Medical Decision Making MDM Narrative: 37-year-old male with history and clinical presentation, DDX: Viral illness, strep pharyngitis, peritonsillar abscess less likely given clinical exam. Patient received 2 L of IV fluids as well as antibiotics and antipyretics. I reviewed all investigations and hematologic indices are significant for leukocytosis and left shift but no anemia or thrombocytopenia. Chemistry indices are grossly within normal limits with the exception of a lactic acidosis, CRP is elevated at 3.5. Urinalysis is negative for UTI. Rapid strep test positive for strep pharyngitis. On re-evaluation patient states that he is feeling much improved he still remains mildly tachycardic but patient endorses that he has a higher heart rate and he has had this all of his life. Follow up Lactate #[address] Martinez. Differential Diagnosis Differential Diagnoses: The differential diagnosis associated with the presentation includes Please see the discussion above Admission/Observation Consideration of admission/observation: Escalation of care including admission/observation considered Please see the discussion above Lab Data MDM Lab Attestation statement: I reviewed the patient's lab results. Please see the discussion above 01/21/23 17:37 01/21/23 18:01 Labs: Lab Results 01/21/23 01/21/23 01/21/23 Range/Units 17:37 18:01 19:34 WBC 13.2 H (4.8-10.8) X10*3/uL RBC 5.14 (4.60-5.80) X10*6/uL Hgb 14.9 (14.0-18.0) g/dl Hct 43.3 (42.0-52.0) % MCV 84.2 (80.0-98.0) fL MCH 29.0 (27.0-33.0) pg MCHC 34.4 (31.0-36.0) g/dl RDW 12.1 (11.0-16.0) % Plt Count 264 (160-400) X10*3/uL MPV 9.2 L (9.4-12.4) fL Immature Gran % (Auto) 0.5 H (0.0-0.4) % Neut % (Auto) 77.5 H (45-73) % Lymph % (Auto) 12.2 L (20-40) % [place] % (Auto) 9.2 (2-11) % Eos % (Auto) 0.2 (0-4) % Baso % (Auto) 0.4 (0-2) % Lymph # (Auto) 1.6 (1.2-4.9) X10*3/uL [place] # (Auto) 1.2 (0.1-1.2) X10*3/uL Eos # (Auto) 0.0 (0.0-0.4) X10*3/uL Baso # (Auto) 0.1 (0.0-0.2) X10*3/uL Abs Immat Gran (auto) 0.07 H (0.00-0.03) X10*3/uL Absolute Neuts (auto) 10.2 H (2.0-8.3) x10*3/uL Absolute Nucleated RBC 0.000 (0.0-0.012) X10*3/uL Nucleated RBC % (auto) 0.0 (0.0-0.2) /100WBC ESR 11 (0-15) MM/HR Sodium 140 (135-145) mmol/L Potassium 4.2 (3.3-5.1) mmol/L Chloride 102 (96-108) mmol/L Carbon Dioxide 26 (22-29) mmol/L Anion Gap 16 (12-20) BUN 11 (9-16) mg/dL Creatinine 1.04 (0.5-1.4) mg/dL Estim Creat Clear Calc 97.5 Estimated GFR > 60 Random Glucose 95 (60-115) mg/dL Lactic Acid 3.4 H* (0.5-2.0) mmol/L Lactic Acid F/U @ 2Hr (0.5-2.0) mmol/L Calcium 10.1 (8.4-10.2) mg/dL Magnesium 2.2 (1.6-2.6) mg/dL Total Bilirubin 0.6 (0.0-1.0) mg/dL Direct Bilirubin 0.2 (0.0-0.5) mg/dL AST 25 (5-37) U/L ALT 36 (0-40) U/L Alkaline Phosphatase 67 (39-117) U/L C-Reactive Protein 3.50 H (< or = 0.50) mg/dL Total Protein 8.4 H (6.5-8.0) g/dL Albumin 4.8 (3.5-5.0) g/dL Urine Color Yellow Urine Appearance Clear Urine pH 6.5 (5.0-9.0) Ur Specific [place] 1.020 (1.005-1.025) Urine Protein Negative (Neg-Trace) mg/dL Urine Glucose (UA) Negative (Negative) mg/dL Urine Ketones Negative (Negative) mg/dL Urine Blood Small (1+) H (Negative) Urine Nitrite Negative (Negative) Ur Leukocyte Esterase Negative (Negative) Urine RBC 3-5 H (0-2) /HPF Urine WBC 0-5 (0-5) /HPF Ur Squamous Epith Cells 0-2 (0-2) /HPF Urine Bacteria None Seen (None Seen) Hyaline Casts 0-2 (0-2) /LPF S. pyogenes GrpA BERNIE Positive A (Negative) 01/21/23 Range/Units 21:01 WBC (4.8-10.8) X10*3/uL RBC (4.60-5.80) X10*6/uL Hgb (14.0-18.0) g/dl Hct (42.0-52.0) % MCV (80.0-98.0) fL MCH (27.0-33.0) pg MCHC (31.0-36.0) g/dl RDW (11.0-16.0) % Plt Count (160-400) X10*3/uL MPV (9.4-12.4) fL Immature Gran % (Auto) (0.0-0.4) % Neut % (Auto) (45-73) % Lymph % (Auto) (20-40) % [place] % (Auto) (2-11) % Eos % (Auto) (0-4) % Baso % (Auto) (0-2) % Lymph # (Auto) (1.2-4.9) X10*3/uL [place] # (Auto) (0.1-1.2) X10*3/uL Eos # (Auto) (0.0-0.4) X10*3/uL Baso # (Auto) (0.0-0.2) X10*3/uL Abs Immat Gran (auto) (0.00-0.03) X10*3/uL Absolute Neuts (auto) (2.0-8.3) x10*3/uL Absolute Nucleated RBC (0.0-0.012) X10*3/uL Nucleated RBC % (auto) (0.0-0.2) /100WBC ESR (0-15) MM/HR Sodium (135-145) mmol/L Potassium (3.3-5.1) mmol/L Chloride (96-108) mmol/L Carbon Dioxide (22-29) mmol/L Anion Gap (12-20) BUN (9-16) mg/dL Creatinine (0.5-1.4) mg/dL Estim Creat Clear Calc Estimated GFR Random Glucose (60-115) mg/dL Lactic Acid (0.5-2.0) mmol/L Lactic Acid F/U @ 2Hr 0.6 (0.5-2.0) mmol/L Calcium (8.4-10.2) mg/dL Magnesium (1.6-2.6) mg/dL Total Bilirubin (0.0-1.0) mg/dL Direct Bilirubin (0.0-0.5) mg/dL AST (5-37) U/L ALT (0-40) U/L Alkaline Phosphatase (39-117) U/L C-Reactive Protein (< or = 0.50) mg/dL Total Protein (6.5-8.0) g/dL Albumin (3.5-5.0) g/dL Urine Color Urine Appearance Urine pH (5.0-9.0) Ur Specific [place] (1.005-1.025) Urine Protein (Neg-Trace) mg/dL Urine Glucose (UA) (Negative) mg/dL Urine Ketones (Negative) mg/dL Urine Blood (Negative) Urine Nitrite (Negative) Ur Leukocyte Esterase (Negative) Urine RBC (0-2) /HPF Urine WBC (0-5) /HPF Ur Squamous Epith Cells (0-2) /HPF Urine Bacteria (None Seen) Hyaline Casts (0-2) /LPF S. pyogenes GrpA BERNIE (Negative) External Record Review External record reviewed: Outpatient record, Prior outpatient labs and Prior outpatient radiology Critical Care Time Critical Care Time Critical Care Time: Yes Total Critical Care Time: 30 Attestation: I personally attest to this time spent taking care of the patient. Discharge Plan Discharge Clinical Impression: Strep pharyngitis, Dehydration, Sepsis Patient Disposition: Home, Self-Care Instructions: Strep Throat (ED) Additional Instructions: 1. Complete the entire course of antibiotics as prescribed. 2. Recommend Tylenol/ibuprofen as needed for body aches, pain, temperatures greater than 100.4. Increase the amount of water intake. 3. Please follow-up with your primary care doctor in the next 1-2 days. Return to the ER for any worsening symptoms. Prescriptions: New penicillin V potassium 500 mg tablet 500 mg PO BID 10 Days Qty: 20 0RF No Action methocarbamol 750 mg tablet 750 mg PO Q8H PRN (Reason: for muscle spasm) Qty: 90 3RF riboflavin (vitamin B2) 400 mg tablet 400 mg PO DAILY Qty: 30 6RF pregabalin 225 mg capsule 225 mg PO BID acetaminophen [Tylenol Extra Strength] 500 mg tablet 500 mg PO Q6H PRN meloxicam 15 mg tablet 15 mg PO DAILY 90 Days Qty: 90 1RF Rx Instructions: Take it with food and full glass of water. Avoid other NSAIDs. escitalopram oxalate 10 mg tablet 10 mg PO DAILY magnesium glycinate 100 mg tablet 200 mg PO DAILY 30 Days Qty: 60 1RF clindamycin phosphate 1 % lotion topical doxycycline monohydrate 100 mg capsule 100 mg PO BID PRN Referrals: Gabi Harding MD [Primary Care Provider] -
--- NOTE | 2023-01-21 17:47 | ECG_ITS ---
Test Reason : chest pain Blood Pressure : / mmHG Vent. Rate : 113 BPM Atrial Rate : 113 BPM P-R Int : 132 ms QRS Dur : 084 ms QT Int : 302 ms P-R-T Axes : 067 058 059 degrees QTc Int : 414 ms Sinus tachycardia Otherwise normal ECG When compared with ECG of 01-AUG-2021 09:37, No significant change was found Referred By: Bradley Martinez Electronically Signed By:MARYJO WINTER MD
[2023-01-21 18:02] LABS: MANUAL DIFF FLAG NO
[2023-01-21 18:12] LABS: Basophils Absolute Auto 0.1 X10*3/uL (0.0-0.2); Basophils Percent Auto 0.4 % (0-2); Eosinophils Percent Auto 0.2 % (0-4); Hematocrit 43.3 % (42.0-52.0); Hemoglobin 14.9 g/dl (14.0-18.0); Imm Gran Abs Auto 0.07 X10*3/uL (0.00-0.03); Imm Gran Pct Auto 0.5 % (0.0-0.4); Lymphocytes Absolute Auto 1.6 X10*3/uL (1.2-4.9); Lymphocytes Percent Auto 12.2 % (20-40); Mean Corpuscular HGB Conc 34.4 g/dl (31.0-36.0); Mean Corpuscular Volume 84.2 fL (80.0-98.0); Mean Platelet Volume 9.2 fL (9.4-12.4); Monocytes Absolute Auto 1.2 X10*3/uL (0.1-1.2); Monocytes Percent Auto 9.2 % (2-11); Neutrophils Absolute Auto 10.2 x10*3/uL (2.0-8.3); Neutrophils Percent Auto 77.5 % (45-73); Platelet Count 264 X10*3/uL (160-400); Red Blood Count 5.14 X10*6/uL (4.60-5.80); Red Cell Distribution Width 12.1 % (11.0-16.0); White Blood Count 13.2 X10*3/uL (4.8-10.8)
[2023-01-21 18:14] LABS: IDNOW Serial# 08D9AD1C; Strep A Nucleic Acid Positive (Negative)
[2023-01-21 18:22] LABS: Lactic Acid 3.4 mmol/L (0.5-2.0)
[2023-01-21 18:23] LABS: Alanine Aminotransferase 36 U/L (0-40); Albumin Level 4.8 g/dL (3.5-5.0); Alkaline Phosphatase 67 U/L (39-117); Anion Gap 16 (12-20); Aspartate Amino Transferase 25 U/L (5-37); Bilirubin Direct 0.2 mg/dL (0.0-0.5); Bilirubin Total 0.6 mg/dL (0.0-1.0); Blood Urea Nitrogen 11 mg/dL (9-16); Calcium 10.1 mg/dL (8.4-10.2); Carbon Dioxide 26 mmol/L (22-29); Chloride 102 mmol/L (96-108); Creatinine Clr Calc Pharmacy 97.5; Estimated Glomerular Filt Rate > 60; Glucose Random 95 mg/dL (60-115); Magnesium 2.2 mg/dL (1.6-2.6); Potassium 4.2 mmol/L (3.3-5.1); Sodium 140 mmol/L (135-145); Total Protein 8.4 g/dL (6.5-8.0)
[2023-01-21 18:51] LABS: Erythrocyte Sedimentation Rate 11 MM/HR (0-15)
[2023-01-21] MEDS: 0.9 % Sodium Chloride 1,000 ML 999 ML IV ×2 (18:58→20:29)
[2023-01-21] MEDS: Ketorolac Tromethamine 30 MG/ML VIAL 15 MG IVPUSH (19:16)
[2023-01-21] MEDS: Acetaminophen 325 MG TABLET 975 MG PO (19:17)
[2023-01-21 19:23] VITALS: BP 130/80; PULSE 113; RESP 24; TEMP 38.4; O2SAT 97
[2023-01-21] MEDS: Piperacillin Sodium/Tazobactam 3.375 GM in 0.9 % Sodium Chloride 50 ML IV (19:36)
[2023-01-21 20:00] VITALS: BP 119/68; PULSE 116; RESP 25; TEMP 37.4; O2SAT 96
[2023-01-21 20:01] LABS: Reflex Lactate? Lactic Acid Added
--- NOTE | 2023-01-21 20:43 | PC.NURSE ---
pt resting comfortably, MD Ortiz at bedside. pt's HR remains elevated at >115 bpm, MONE hung, temp has decreased since Tylenol
[2023-01-21 21:15] VITALS: BP 120/71; PULSE 112; RESP 23; TEMP 37.1; O2SAT 97
[2023-01-21 21:22] LABS: Appearance Urine Clear; Color Urine Yellow; Glucose Urine UA Negative (Negative); Leukocyte Esterase Urine Negative (Negative); Nitrite Urine Negative (Negative); PH 6.5 (5.0-9.0); UMIC TRIGGER UACC YES; Urine Blood Small (1+) (Negative); Urine Ketones Negative (Negative); Urine Protein Negative (Neg-Trace)
[2023-01-21 21:29] LABS: Bacteria Urine None Seen (None Seen); Hyaline Casts Urine 0-2 /LPF (0-2); Squamous Epithelial Cell Urine 0-2 /HPF (0-2); WBC Urine 0-5 /HPF (0-5)
[2023-01-21 21:35] VITALS: BP 110/65; PULSE 109; RESP 25; O2SAT 96
[2023-01-21 22:22] LABS: ~Lactic Acid-LAB USE ONLY 0.6 mmol/L (0.5-2.0)
[2023-01-21 23:54] VITALS: BP 115/68; PULSE 101; RESP 17; TEMP 36.9; O2SAT 97
== END 2023-01-21 23:59 | disposition home or self-care (01) ==
PROVIDERS: Physician Assistant; Emergency Provider Internal Medicine; PCP Internal Medicine Adolescent Medicine
DX: J02.0 Streptococcal pharyngitis (principal); E86.0 Dehydration; A41.9 Sepsis, unspecified organism; M79.10 Myalgia, unspecified site; M54.50 Low back pain, unspecified; R51.9 Headache, unspecified; Z79.899 Other long term (current) drug therapy; Z11.52 Encounter for screening for COVID-19; Z20.822 Contact with and (suspected) exposure to COVID-19
CPT/HCPCS: 36415; 80048; 80076; 81001; 83605; 83735; 85025; 85652; 86140; 87040; 87651; 93005; 96361; 96374; 96375; 99284; 99285; J1885; J2543

== ENCOUNTER 2023-02-03 09:19 | Outpatient (AMB) | payer OTHER, SELFPAY ==
--- NOTE | 2023-02-03 09:33 | MHC.OFFVIS ---
Intake Vital Signs 02/03/23 09:37 Height 5 ft 5 in Weight 184 lb BMI 30.6 BP 112/82 Blood Pressure Location Lt brachial Position Sitting Pulse 88 Pulse Source Pulse Oximeter Pulse Oximetry (%) 97 Oxygen Delivery Method Room Air Intake Visit Reasons: Sleep probs, Neck back spine problems - Conf Intake Note: F/U pain management, also he snores a lot Radiological Health Specialist Required: No Allergies No Known Allergies Allergy (Verified 02/03/23 09:35) HPI HPI Comments History of Present Illness Details 37 y/o male patient presents for new in-person visit for sleep consultation. He reports loud snoring, and witnessed apnea spells and gasping arousals. He had two home sleep study but the result was normal. Pt continues to endorse non refreshing sleep with daytime sleepiness. Sleep questionnaire: Have you ever been diagnosed with a sleep disorder? No. Have you ever had a sleep study in the past? Yes, home sleep study twice. Have you ever been treated for a sleep disorder? No. Do you take medications for a sleep disorder? No. Do you snore? Yes, loudly. Do you wake up gasping at night? Yes. Do you have episodes of apneas? Yes. If yes, are they witnessed? Yes, by his . Do you have episodes of nocturnal chest pain or dyspnea? No. Do you have difficulty initiating sleep? No. Do you have difficulty maintaining sleep? No. Do you wake up tired? Yes. Do you have headaches upon awakening? No. Do you wake up with dry mouth or throat? Yes, sometimes. Do you have GERD? No. Do you have nocturia? No. Do you have nocturnal leg cramps? Yes. Do you have symptoms of restless legs? Yes, sometimes. Do you act out your dreams? No. Sleep hygiene questionnaire: What is your usual sleep routine? Usual bedtime is at 8-30 pm; Usual wake up time is at 7 am. morning to Thursday morning, 9 am to 3 pm. Do you take naps? Yes, sometimes. Is your sleep environment cool, dark, and quiet? Yes. Do you exercise? Yes. Do you take caffeine or other stimulants? Coffee before work. Do you use electronics in bed? No. What is your work schedule? Work overnight, 11 pm to 7 am. Hypersomnolence questionnaire: Do you have daytime tiredness or fatigue? Yes. Do you easily fall asleep when inactive? No. Have you ever had episodes of sudden weakness? No. Have you ever had episodes of sudden weakness associated with strong emotions? No. PFSH Medical History Lumbar spondylosis Cervical spondylosis Headache Surgical History H/O knee surgery S/P cervical disc replacement Family History Father Diabetes mellitus Mother Diabetes mellitus Social History (Updated 02/03/23 @ 09:37 by Lisa Mckeon CMA) Alcohol intake: current Alcohol intake frequency: holidays/special occasions only Patient Tobacco Use Status: Never used Tobacco Review of Systems Const All systems reviewed & are unremarkable except as noted in HPI and below ENT Reports Normal hearing present Neuro Reports Normal hearing present Physical Exam Vital Signs: Last Vital Signs Pulse 88 02/03/23 09:37 BP 112/82 02/03/23 09:37 Pulse Ox 97 02/03/23 09:37 Oxygen Delivery Method Room Air 02/03/23 09:37 BMI result Body Mass Index 30.6 Const General: cooperative and tired appearing Nutritional Appearance: obese Orientation/consciousness: patient oriented x3 Neck Neck: Yes full ROM and Yes supple Resp Effort & Inspection: normal respiratory effort and able to speak in complete sentences Neuro General: patient oriented x3, gait normal, moves all extremities and no focal motor deficits Cranial nerves: Yes Bilaterally intact EOM present, Yes Normal facial strength present, Yes Midline tongue present, Yes Symmetric palate elevation present, Yes Normal hearing present, Yes Ability to bilaterally rotate head present and Yes Ability to bilaterally elevate shoulders present Cognition (Neuro): normal cognition Gait exam (Neuro): Normal gait present Motor exam (neuro): 5/5 motor strength present throughout, Pronator motor function not present and no tremor noted Psych Appearance: grossly normal Mental Status: mental status grossly normal Speech and movement: Normal speech and movement present Affect: normal affect Attitude: cooperative Assessment & Plan Assessment & Plan (1) Witnessed episode of apnea: Code(s): R06.81 - Apnea, not elsewhere classified (2) Daytime sleepiness: Code(s): R40.0 - Somnolence (3) Loud snoring: Code(s): R06.83 - Snoring Plan Pt is advised to undergo in lab sleep study to assess for sleep apnea. Pt had home sleep study done, and it was negative, but patient's symptoms suspected sleep apnea and will do in lab sleep study for detailed evaluation. Wt reduction advised. Will f/u with pt after study to discuss results and appropriate treatment options. Pt to call with any worsening concerns or questions. Orders: Orders RT PSG in-lab sleep study Today R06.81 - Apnea, not elsewhere classified, R06.83 - Snoring, R40.0 - Somnolence Coding Level of Care Code New Pt Level 3 (62142) Diagnoses Witnessed episode of apnea R06.81 Daytime sleepiness R40.0 Loud snoring R06.83
[2023-02-03 09:37] VITALS: BP 112/82; PULSE 88; O2SAT 97; BMI 30.6
== END 2023-02-03 09:54 | disposition home or self-care (01) ==
PROVIDERS: PCP Internal Medicine Adolescent Medicine; Visit Provider Nurse Practitioner Family
DX: R06.81 Apnea, not elsewhere classified (principal); R40.0 Somnolence; R06.83 Snoring
CPT/HCPCS: 99214

== ENCOUNTER → 2023-02-03 09:19 | Outpatient (BNVA) | payer OTHER, SELFPAY | PROVIDERS: PCP Internal Medicine Adolescent Medicine; Visit Provider Nurse Practitioner Family ==